=== PATIENT | female | born 1995 | race American Indian/Alaskan Native ===

== ENCOUNTER 2019-11-16 23:35 | Observation (INO) | payer BC ==
[2019-11-17 00:41] LABS: Basophils % (Auto) 0.3 % (0.0-1.8); Eosinophils % (Auto) 0.4 % (0.0-4.3); Hematocrit 34.9 % (30.3-42.9); Hemoglobin 11.4 gm/dl (10.1-14.3); Lymphocytes % (Auto) 51.2 % (13.4-35.0); Mean Corpuscular HGB Conc 33 % (30-34); Mean Corpuscular Volume 89 fl (79-97); Monocytes # (Auto) 0.6 K/mm3 (0.0-0.8); Monocytes % (Auto) 7.4 % (0.0-7.3); Platelet Count 199 K/mm3 (140-440); Red Blood Count 3.92 M/mm3 (3.65-5.03); Red Cell Distribution Width 13.2 % (13.2-15.2)
--- NOTE | 2019-11-17 01:30 | Ultrasound Report ---
ULTRASOUND OBSTETRIC INDICATION / CLINICAL INFORMATION: 6 weeks with vaginal bleeding. Clinical Gestational Age (GA): 6 weeks 4 days TECHNIQUE: Transabdominal. Transvaginal COMPARISON: None available. FINDINGS: There is an oval fluid collection seen in the lower uterine segment of the endometrium measuring 0.75 x 0.32. There is no yolk sac or pole identified within the fluid collection. The endometrial c omplex is thickened measuring 12 mm. ADNEXA: Right ovary is well-visualized and appears unremarkable. The left ovary could not be identifi ed. FREE FLUID: Moderate free fluid is identified in the right adnexa. ADDITIONAL FINDINGS: None. IMPRESSION: 1. There is a small oval fluid collection within the endometrium, within the lower uterine segment. T here is no yolk sac or pole to confirm that this is a gestational sac. Given the moderate amoun t of free fluid present in the right adnexa, I am concerned that there may be an ectopic pr esent with a pseudosac noted within the uterus. This result was called to the ER physician at 0025 hours (CLOTH PRINTING INSPECTOR). Signer Name: Cass Matthew MD Signed: 11/17/2019 1:25 AM Workstation Name: [id number]
--- NOTE | 2019-11-17 01:30 | Ultrasound Report ---
ULTRASOUND OBSTETRIC INDICATION / CLINICAL INFORMATION: 6 weeks with vaginal bleeding. Clinical Gestational Age (GA): 6 weeks 4 days TECHNIQUE: Transabdominal. Transvaginal COMPARISON: None available. FINDINGS: There is an oval fluid collection seen in the lower uterine segment of the endometrium measuring 0.75 x 0.32. There is no yolk sac or pole identified within the fluid collection. The endometrial c omplex is thickened measuring 12 mm. ADNEXA: Right ovary is well-visualized and appears unremarkable. The left ovary could not be identifi ed. FREE FLUID: Moderate free fluid is identified in the right adnexa. ADDITIONAL FINDINGS: None. IMPRESSION: 1. There is a small oval fluid collection within the endometrium, within the lower uterine segment. T here is no yolk sac or pole to confirm that this is a gestational sac. Given the moderate amoun t of free fluid present in the right adnexa, I am concerned that there may be an ectopic pr esent with a pseudosac noted within the uterus. This result was called to the ER physician at 0025 hours (APPRENTICE PATTERN MAKER). Signer Name: Cass Matthew MD Signed: 11/17/2019 1:25 AM Workstation Name: [id number]
[2019-11-17] MEDS ORDERED: ONDANSETRON 4 MG/2 ML INJ IV ONE (03:15)
[2019-11-17] MEDS ORDERED: MORPHINE 2 MG/1 ML INJ IV ONE (03:15)
[2019-11-17] MEDS ORDERED: SODIUM CHLORIDE 0.9% 1000 ML 1,000 ML IV ONE (03:15)
--- NOTE | 2019-11-17 03:16 | Emergency Department Report ---
ED HPI - General Chief complaint: Abdominal Pain Stated complaint: 6 WEEKS PREG/VAG BLEEDING/CRAMPING Time Seen by Provider: 11/17/19 01:45 Source: patient Mode of arrival: Ambulatory Limitations: No Limitations - History of Present Illness Initial comments: 24-year-old female, , 6 weeks , presents to ED with abdominal pain and vaginal bleeding, onset yesterday. OB: Melvin Armando MD Complaint: abdominal pain, vaginal bleeding -: This evening Location: pelvis Radiation: back Severity: moderate Quality: cramping Consistency: constant Improves with: none Worsens with: none Associated symptoms: vaginal bleeding Vaginal bleeding: heavy :: Yes Number of weeks : 6 OB History - Current : no complications Pre-kyrie care: followed by OB (Melvin Armando) - Related Data Allergies Allergy/AdvReac Type Severity Reaction Status Date / Time No Known Allergies Allergy Unverified 11/16/19 23:50 ED Review of Systems ROS: Stated complaint: 6 WEEKS PREG/VAG BLEEDING/CRAMPING Other details as noted in HPI Comment: All other systems reviewed and negative Gastrointestinal: abdominal pain Genitourinary: other (reports vag bleeding) ED Past Medical Hx - Past Medical History Previous Medical History?: No - Surgical History Past Surgical History?: No - Social History Smoking Status: Former Smoker Substance Use Type: None ED Physical Exam - General Limitations: No Limitations General appearance: alert, in no apparent distress - Head Head exam: Present: atraumatic, normocephalic - Eye Eye exam: Present: normal appearance - ENT ENT exam: Present: mucous membranes moist - Neck Neck exam: Present: normal inspection - Respiratory Respiratory exam: Present: normal lung sounds bilaterally. Absent: respiratory distress - Cardiovascular Cardiovascular Exam: Present: regular rate, normal rhythm - GI/Abdominal GI/Abdominal exam: Present: soft, tenderness (suprapubic). Absent: distended - Extremities Exam Extremities exam: Present: normal inspection - Neurological Exam Neurological exam: Present: alert, oriented X3 - Psychiatric Psychiatric exam: Present: normal affect, normal mood - Skin Skin exam: Present: warm, dry, intact, normal color ED Course Vital Signs 11/16/19 11/17/19 11/17/19 23:48 03:35 03:59 Temperature 97.6 F Pulse Rate 82 80 Respiratory 18 18 Rate Blood Pressure 120/70 Blood Pressure 107/57 [Right] O2 Sat by Pulse 98 100 99 Oximetry - Consultations Consultation #1: 11/17/19 03:05 Spoke w/ Dr Ovalles, termite control representative for [facility] OB. States no privileges here. Will call OB on-call for unassigned. Consultation #2: 11/17/19 03:31 (Daylight Savings Time) Spoke w/ Dr Sirena Bernal. Will take pt to OR. ED Medical Decision Making - Lab Data Result diagrams: 11/16/19 23:59 - Radiology Data Radiology results: report reviewed, image reviewed - Medical Decision Making 24-year-old female presents to ED with abdominal pain, vaginal bleeding. Ultrasound concerning for ruptured ectopic . Vital signs have been stable. Patient is not tachycardic. Hemoglobin is 11. Spoke with Dr. Bernal, OB on-call. Patient will be taken to the OR for surgery. - Differential Diagnosis Ectopic , threatened miscarriage, spontaneous miscarriage Critical care attestation.: If time is entered above; I have spent that time in minutes in the direct care of this critically ill patient, excluding procedure time. ED Disposition Clinical Impression: Ectopic Disposition: DC-09 OP ADMIT IP TO THIS HOSP Is pt being admited?: Yes Condition: Stable Instructions: Abdominal Pain (ED) Time of Disposition: 04:41
[2019-11-17 04:44] LABS: Bilirubin,Urine NEG (Negative); Blood,Urine LG (Negative); Color,Urine Red (Yellow); Urobilinogen,Urine < 2.0 mg/dL (<2.0)
[2019-11-17 04:49] LABS: RBC,Urine > 182.0 /HPF (0.0-6.0)
--- NOTE | 2019-11-17 05:12 | History and Physical Report ---
History of Present Illness Date of examination: 11/17/19 Date of admission: 11/17/19 Chief complaint: abdominal pain and vaginal bleeding History of present illness: This is a 24 yo at 6 weeks per LMP. She has paperwork from [facility] with information. She reports pain in back and right side and bleeding for 1 day. No n,v,f, nor chills. She reports a hx of chlamydia. her care is at [facility] and has no privileges here. Past History Past Medical History: other (Migraines ) Past Surgical History: no surgical history SOLUTION DIRECTOR History: chlamydia Family/Genetic History: none Social history: . denies: smoking, alcohol abuse, prescription drug abuse Medications and Allergies Allergies Allergy/AdvReac Type Severity Reaction Status Date / Time No Known Allergies Allergy Unverified 11/16/19 23:50 Review of Systems All systems: negative Genitourinary: vaginal bleeding, pelvic pain - Vital Signs Vital signs: Vital Signs Temp Pulse Resp BP Pulse Ox 97.6 F 82 18 120/70 98 11/16/19 23:48 11/16/19 23:48 11/16/19 23:48 11/16/19 23:48 11/16/19 23:48 Temp Pulse Resp BP Pulse Ox 97.6 F 80 18 107/57 99 11/16/19 23:48 11/17/19 03:59 11/17/19 03:59 11/17/19 03:59 11/17/19 03:59 - Physical Exam Breasts: Positive: deferred Cardiovascular: Regular rate, Normal S1 Lungs: Positive: Clear to auscultation, Normal air movement Abdomen: Positive: normal appearance, soft, normal bowel sounds. Negative: distention, tenderness, guarding Genitourinary (Female): Positive: normal external genitalia, normal perenium Vagina: Positive: normal moisture Uterus: Positive: normal size, normal contour Extremities: Positive: normal Deep Tendon Reflex Grade: Normal +2 Results Result Diagrams: 11/16/19 23:59 Abnormal lab results 11/16/19 11/16/19 11/17/19 Range/Units 23:59 23:59 04:07 Lymph % (Auto) 51.2 H (13.4-35.0) % Dare % (Auto) 7.4 H (0.0-7.3) % HCG, Quant 724.1 H (0-4) mIU/mL Urine WBC (Auto) 40.0 H (0.0-6.0) /HPF All other labs normal. Ultrasound: report reviewed Assessment and Plan A/P vaginal bleeding and abdominal pain quant 700 with only pseudo sac noted per US findings US concern for ectopic with moderate to large fluid in the right pelvic area discussed possibility of ectopic we discussed methotrexate, expectant mgt and surgery after long discussion patient desires to proceed with surgery r/b a which include but not limited to bleeding infection, damage to pelvic and non pelvid organs and risk of decreased fertility, risk of hysterectomy and . will proceed with a open laparotomy due to moderate to large amount of fluid in the abdomen .
[2019-11-17] MEDS ORDERED: propofoL 200 MG/20 ML VIAL IV ONE (06:47)
[2019-11-17] MEDS ORDERED: LIDOCAINE MPF (2%) 20 MG/1 ML VIAL 5 ML ONE (06:51)
[2019-11-17] MEDS ORDERED: ROCURONIUM 50 MG/5 ML INJ IV ONE (06:52)
[2019-11-17] MEDS ORDERED: NEOSTIGMINE 10MG/10 ML INJ MDV ONE (06:53)
[2019-11-17] MEDS ORDERED: GLYCOPYRROLATE 0.4 MG/2 ML INJ ONE (06:53)
[2019-11-17] MEDS ORDERED: ONDANSETRON 4 MG/2 ML INJ ONE (06:53)
[2019-11-17] MEDS ORDERED: fentaNYL 100 MCG/2 ML INJ ONE (07:07)
[2019-11-17] MEDS ORDERED: LACTATED RINGERS 1,000 ML ONE ×2 (07:29→08:29)
[2019-11-17] MEDS ORDERED: ceFAZolin 1 GM VIAL ONE (07:31)
[2019-11-17] MEDS ORDERED: HYDROmorphone 1 MG/1 ML INJ ONE (07:43)
[2019-11-17] MEDS ORDERED: SODIUM CHLORIDE 0.9% IRR 1,500 ML BOTTLE IR ONE (08:00)
[2019-11-17] MEDS ORDERED: MEPERIDINE 25 MG/1 ML INJ IV PRN (08:26)
[2019-11-17] MEDS ORDERED: ONDANSETRON 4 MG/2 ML INJ IV PRN (08:26)
[2019-11-17] MEDS ORDERED: fentaNYL 100 MCG/2 ML INJ IV PRN (08:26)
[2019-11-17] MEDS ORDERED: NALOXONE 0.4 MG/1 ML INJ IV PRN (08:26)
[2019-11-17] MEDS: HYDROmorphone 1 MG/1 ML INJ IV PRN ×2 (08:28→08:40)
--- NOTE | 2019-11-17 08:28 | Post Anesthesia Evaluation ---
- Post Anesthesia Evaluation Patient Participated: Yes Airway Patent: Yes Stable Respiratory Function: Yes Nausea/Vomiting: No Temp > 96.8F: Yes Pain Manageable: Yes Adequeate Hydration: Yes Anesthesia Complications: No
--- NOTE | 2019-11-17 08:28 | Anesthesia Consultation ---
Anesthesia Consult and Med Hx - Airway Anesthetic Teeth Evaluation: Good ROM Head & Neck: Adequate Mental/Hyoid Distance: Adequate Mallampati Class: Class II Intubation Access Assessment: Good - Pulmonary Exam CTA: Yes - Cardiac Exam Cardiac Exam: RRR - Pre-Operative Health Status ASA Pre-Surgery Classification: ASA2, Emergency Proposed Anesthetic Plan: General
--- NOTE | 2019-11-17 08:28 | Anesthesia Day of Surgery ---
Anesthesia Day of Surgery - Day of Surgery Patient Examined: Yes Patient H&P Reviewed: Yes Patient is NPO: Yes
[2019-11-17] MEDS ORDERED: PROMETHAZINE 25 MG RECT SUPP PR PRN (08:34)
[2019-11-17] MEDS ORDERED: ACETAMINOPHEN 325 MG TAB PO PRN (08:34)
[2019-11-17] MEDS ORDERED: MAGNESIUM HYDROXIDE (MOM) ORAL LIQD UDC PO PRN (08:34)
[2019-11-17] MEDS ORDERED: MORPHINE 4 MG/1 ML INJ IV PRN ×2 (08:34)
[2019-11-17] MEDS ORDERED: ONDANSETRON 4 MG ODT TAB PO PRN (08:34)
[2019-11-17] MEDS ORDERED: oxyCODONE /ACETAMINOPHEN 5-325MG TAB PO PRN (08:34)
[2019-11-17] MEDS ORDERED: HYDROcodone/ACETAMINOPHEN 5-325 MG TAB PO PRN (08:34)
[2019-11-17] MEDS ORDERED: METOCLOPRAMIDE 10 MG/2 ML INJ IV PRN (08:34)
[2019-11-17] MEDS: KETOROLAC 30 MG/1 ML INJ IV SCH ×3 (08:52→20:31)
--- NOTE | 2019-11-17 08:56 | Operative Report ---
Operative Report Operative Report: DATE: 11/17/19 PREOP: 1. VAGINAL BLEEDEING 2. VAGINAL BLEEDING WITH CLOTS 3. SEVERE ABDOMINAL PAIN 4. SUSPECT CONCERNING FOR ECTOPIC PER RADIOLOGY POST 1-4 arley 5. nO EVIDENCE OF RUPTURED ECTOPIC PROCEDURE: EXPLORATORY LAPARAOTOMY SURGEON: DR. COYLE STORY WRITER: DR. TRIANA ANESTHESIA; GENERAL EBL: COMPLICATIONS; NONE FINDINGS: RIGHT AND LEFT OVARIES GROSSLY NORMAL, UTERUS NORMAL., OVARIES NORMAL B/L MINIMAL BLOOD INDICATIONS:The patient is a 24 yo at 6 weeks presented to ER with vaginal bleeding and severe abdominal pain. Evaluation in the emergency room reveals a possible ectopic with moderate amount of fluid and in abdomen. The radiologist reported concern for ectopic . her BHCG was 700> Given these findings as well as physical exam findings a recommendation was made to proceed with exploratory laparotomy and possible salpingectomy. The procedure was discussed with the patient in detail including risk of bleeding infection injury to surrounding organs, and possible need for further surgery. Informed consult was obtained prior to proceeding with the procedure. PROCEDURE NOTE: The patient was taken to OR where general anesthesia was administered without difficulty. The patient was prepped and draped in normal sterile fashion. A pfannsteil skin incision was made with scapel and carried through to the underlying layer of fascia using the bovie. The fascia was incised in the midline and extended laerally using Craven scissors. Stephen clamps was used to grasp the superior aspect of the fascia incision , which was elevated and the underlying rectus muscles were dissected off bluntly using Craven scissors. The rectus muscles were dissected in the midline. The peritoneum was identified using blunt dissection and entered in this manner and extended superiorly and inferiorly with good visulaiztion of the bladder. At this time, the blood found in abdomen was suction. The uterus closely inspected and each tube inspected without any abnormalities noted. The pelvis was cleared of all blood and copiously irrigated. at this time, the laparotomy sponges remvoed. The rectus muscles were reapproximated using 3-0 vicryl. The fascia was reapproximated with o vicryl sutures. The fascia was closed reapproximated o vicryl sutures. The skin was closed with 4-0 monocryl. Sponge, labs and instrument count correct x2. The patient was stable at the completion of the procedure and was subsequently transferred to the recovery room in stable condition.
[2019-11-17] MEDS: D5W/LACTATED RINGERS 1,000 ML IV SCH ×2 (10:12→18:47)
[2019-11-17] MEDS: DOCUSATE SODIUM 100 MG CAP PO SCH ×2 (10:13→22:03)
[2019-11-18] MEDS: KETOROLAC 30 MG/1 ML INJ IV SCH (03:01)
[2019-11-18 04:27] LABS: Hematocrit 29.7 % (30.3-42.9); Hemoglobin 9.8 gm/dl (10.1-14.3)
--- NOTE | 2019-11-18 08:21 | Progress Note ---
Assessment and Plan A: POD#1 s/p ex lap secondary to suspected ectopic ; Asymptomatic anemia P: Routine postoperative advances Subjective - Subjective Date of service: 11/18/19 Principal diagnosis: s/p ex lap for suspected ectopic Interval history: No overnight issues. + flatus. No bowel movement. Ambulating minimally. Patient reports: appetite normal, voiding normally, pain well controlled, flatus, ambulating normally, no bowel movement, no nauseated Objective - Vital Signs Latest vital signs: Vital Signs Temp Pulse Resp BP BP Pulse Ox 11/18/19 05:37 98.4 F 62 18 110/55 96 11/18/19 00:38 99.1 F 77 16 95/44 95 11/17/19 20:20 98.2 F 65 16 98/69 98 11/17/19 18:18 65 96/45 11/17/19 16:38 97.7 F 59 L 16 94/46 98 11/17/19 11:48 98.1 F 50 L 16 100/54 97 11/17/19 09:40 97.8 F 48 L 20 104/49 100 11/17/19 09:15 97.2 F L 48 L 14 107/62 100 11/17/19 09:08 13 11/17/19 09:02 12 11/17/19 09:00 49 L 12 104/61 100 11/17/19 08:52 12 11/17/19 08:45 45 L 16 111/59 100 11/17/19 08:40 48 L 16 107/53 100 11/17/19 08:35 49 L 14 104/57 100 11/17/19 08:30 50 L 13 104/62 100 11/17/19 08:28 14 11/17/19 08:24 97.6 F 59 L 12 99/52 100 Intake and Output 11/17/19 11/18/19 11/18/19 22:59 06:59 14:59 Intake Total 1480 120 Output Total 1200 250 Balance 280 -130 Intake: IV 1000 D5lr 1,000 ml @ 125 mls/ 1000 hr IV DIRECT ESTEFANIA Rx#: [id number] Oral 120 Intake, Free Water 360 120 Output: Urine 1200 250 Indwelling Catheter 600 Void 600 250 Other: Total, Intake Amount 120 Total, Output Amount 600 250 Voiding Method Toilet # Voids Void 1 - Exam Breasts: Present: deferred Cardiovascular: Present: Regular rate Lungs: Present: Clear to auscultation Abdomen: Present: soft, normal bowel sounds Incision: Present: dressed - Labs Labs: Abnormal lab results 11/18/19 Range/Units 03:59 Hgb 9.8 L (10.1-14.3) gm/dl Hct 29.7 L (30.3-42.9) %
[2019-11-18] MEDS: DOCUSATE SODIUM 100 MG CAP PO SCH (10:32)
[2019-11-18] MEDS ORDERED: MORPHINE 2 MG/1 ML INJ IV PRN (13:30)
--- NOTE | 2019-11-18 16:31 | Event Note ---
Date: 11/18/19 P{t requesting discharge home today. She is ambulating well. Tolerating regular diet and passing flatus. Pain well controlled. Pt will be discharged per request with follow up in [address] Bernal.
--- NOTE | 2019-11-18 16:39 | Discharge Summary ---
Providers - Providers Date of Admission: 11/17/19 08:34 Date of discharge: 11/18/19 Attending physician: BRODIE BERNAL MD Primary care physician: HEEL STIFFENER Hospitalization Reason for admission: other (Suspected Ectopic ) Procedure details: Exploratory Laparotomy - please see operative report for details. Incision: intact Hospital course: Pt was admitted with vaginal bleeding and abdominal pain with imaging findings concerning for ruptured ectopic . She underwent exploratory laparotomy which she tolerated well. She requested discharge postop day #1. She will follow up in [address] Bernal. Condition at discharge: Stable Disposition: DC-01 TO HOME OR SELFCARE - Discharge Diagnoses (1) S/P exploratory laparotomy Status: Acute (2) Ectopic Status: Acute Qualifiers: Location of ectopic : unspecified location Intrauterine status: unspecified Qualified Code(s): O00.90 - Unspecified ectopic without intrauterine Plan - Discharge Medications Prescriptions: Ferrous Sulfate [Feosol 325 MG tab] 325 mg PO BID #60 tablet Ibuprofen [Motrin] 800 mg PO Q8HR PRN #30 tablet PRN Reason: Pain, Moderate (4-6) oxyCODONE /ACETAMINOPHEN [Percocet 5/325] 1 tab PO Q6HR PRN #30 tablet PRN Reason: Pain - Provider Discharge Summary Activity: routine, no sex for 6 weeks, no heavy lifting 4 weeks, no strenuous exercise Diet: routine Instructions: routine Additional instructions: [] Smoking cessation referral if applicable(refer to patient education folder for contact #) [] Refer to [facility]'s [facility] Booklet Call your doctor immediately for: * Fever > 100.5 * Heavy vaginal bleeding ( >1 pad per hour) * Severe persistent headache * Shortness of breath * Reddened, hot, painful area to leg or breast * Drainage or odor from incision. * Keep incision clean and dry at all times and follow doctor's instructions regarding bathing/showering - Follow up plan Follow up: AFSHAN GREGORIO MD [Primary Care Provider] - 3-5 Days BRODIE BERNAL MD [Staff Physician] - 7 Days
[2019-11-18 18:06] VITALS: BP 109/59
== END 2019-11-18 17:30 | disposition home or self-care (01) ==
LOC: ED 23:35 → OR 11-17 07:02 → OB 11-17 08:34
PROVIDERS: ADMIT Obstetrics & Gynecology; ATTEND Obstetrics & Gynecology
DX: O00.90 Unspecified ectopic pregnancy without intrauterine pregnancy (principal); O46.91 Antepartum hemorrhage, unspecified, first trimester; Z3A.01 Less than 8 weeks gestation of pregnancy
CPT/HCPCS: 36415; 49000; 76801; 76817; 81001; 84702; 84703; 85014; 85018; 85025; 86900; 86901; 87086; 96374; 96375; 96376; 99284; G0378; J0690; J1170; J1885; J2270; J2405; J2704; J2710; J2765; J3010; J7030; J7120; J7121